=== PATIENT | female | born 1960 | race Caucasian/White ===

== ENCOUNTER 2022-10-01 08:00 | Emergency (ER) | payer OTHER, SELFPAY ==
--- NOTE | ~2022-10-01 | CT_ITS ---
EXAMINATION: CT HEAD WITHOUT CONTRAST CLINICAL INFORMATION: Confusion COMPARISON: None TECHNIQUE: Contiguous axial imaging was performed from the skull base to vertex without intravenous administration of contrast. This CT examination was performed using dose optimization techniques as appropriate, variously including the following: *Automated exposure control *Adjustment of mA and/or kV according to patient size (this includes techniques or standardized protocols for targeted exams where dose is matched to indication/reason for exam; i.e. extremities or head) *Use of iterative reconstruction technique DLP: 565 mGy-cm FINDINGS: There is prominence to the sulci and ventricles with deep white matter gliosis. No hemorrhage, mass or mass effect or extra-axial collection. Calvarium intact. CT/CT head/brain wo IV con IMPRESSION: Chronic changes observed. No acute intracranial pathology.
--- NOTE | ~2022-10-01 | XR_ITS ---
EXAMINATION: XR CHEST CLINICAL INFORMATION: Dementia COMPARISON: None TECHNIQUE: Frontal view of the chest was obtained. FINDINGS: No significant abnormality is noted involving the heart, lungs, mediastinum, bony thorax or soft tissues. XR/XR chest 1V IMPRESSION: Unremarkable examination.
[2022-10-01 08:13] VITALS: BP 104/72; PULSE 101; PULSE 98; RESP 16; TEMP 36.5; O2SAT 100; O2SAT 99; BMI 23.1
[2022-10-01 08:17] VITALS: BP 107/73; PULSE 102; RESP 16; TEMP 36.5; O2SAT 100
--- NOTE | 2022-10-01 08:19 | ECG_ITS ---
Test Reason : fall Blood Pressure : / mmHG Vent. Rate : 093 BPM Atrial Rate : 093 BPM P-R Int : 162 ms QRS Dur : 066 ms QT Int : 376 ms P-R-T Axes : 040 -09 065 degrees QTc Int : 467 ms Normal sinus rhythm Normal ECG No previous ECGs available Referred By: Katya Chavez Electronically Signed By:EMIR MOTT
--- NOTE | 2022-10-01 08:20 | ED.GENADULT ---
HPI - General Adult General Chief complaint: Altered Mental Status Stated complaint: Increased confusion, found on floor at SNF per EMS Time Seen by Provider: 10/01/22 08:08 Source: EMS Mode of arrival: EMS Limitations: altered mental status (Dementia) History of Present Illness HPI narrative: 62-year-old female with history of advanced dementia came in from long-term after was found on the floor, patient is nonverbal and disoriented due to dementia according to the long-term paper, patient is DNR and DNI patient in the emergency department is cooperative, calm, nonverbal, non historian. Related Data Allergies Allergy/AdvReac Type Severity Reaction Status Date / Time No Known Allergies Allergy Verified 10/01/22 08:19 Review of Systems Review of Systems: Yes Unobtainable due to mental status PMFSH Social History Social History Advance Directives: Yes Advance Directives on File: Yes Advance Directives Date on File: 10/01/22 Physical Exam ED Vital Signs: Vital Signs - 24 hr 10/01/22 08:13 10/01/22 08:17 Temperature 97.7 F 97.7 F Pulse Rate 101 H 102 H Respiratory Rate 16 16 Blood Pressure 104/72 107/73 Pulse Oximetry 100 100 Oxygen Delivery Method Room Air Room Air BMI result Body Mass Index 23.1 Vital signs have been reviewed as appeared to be correct. Blood pressure normal. Heart rate normal. Respiration rate normal. Temperature normal. Oxygen saturation normal. Appearance: Awake, No acute distress. Head: Normal external exam. Normocephalic. Atraumatic. No Couch signs noted. No raccoon eyes noted Eyes: PERRLA. EOMI. Conjunctiva and sclera normal. Eyelids normal. ENT: TM's Normal. Pharynx normal. Uvula midline. Moist mucous membranes. No trismus noted. No drooling noted. No muffled voice noted. Neck: Normal inspection. Neck supple. FROM. No adenopathy. Thyroid Normal. No meningeal signs. No neck mass noted. CVS: Normal heart rate and rhythm. Heart sound normal. No murmurs noted. Pulses normal throughout. Respiratory: No respiratory distress. Painless inspiration. Breath sounds normal. No wheezes/rales/rhonchi noted. Chest nontender. No accessory muscle usage noted or decreased air movement noted. Abdomen: Soft and nontender. Bowel sounds normal in all 4 quadrants. No distention noted. No organomegaly noted. No visible injury noted. Back: No CVA tenderness. Full range of motion noted. Skin: Skin warm and dry. Normal skin color. Normal skin turgor. No rashes/lesions/lacerations noted. Extremities: No lower extremity edema. Extremities exhibit normal range of motion. Extremities nontender. Neuro: Cranial nerve exam: II-XII are grossly intact No motor deficit. No sensory deficit. Reflexes normal. Course Course Course Narrative: 62-year-old female came in from long-term patient is demented and poor historian, no leukocytosis with left shift of immature granulocyte negative workup including neuro exam and a head CT, patient will be discharged back to the long-term. Medical Decision Making Differential Diagnosis Differential Diagnoses: The differential diagnosis associated with the presentation includes (Advanced dementia, intracranial bleed, CVA, electrolyte disturbance, dehydration, UTI.) Lab Data MDM Lab Attestation statement: I reviewed the patient's lab results. 10/01/22 08:30 10/01/22 09:24 Labs: Lab Results 10/01/22 10/01/22 10/01/22 Range/Units 08:30 08:30 08:30 WBC 7.0 (4.8-10.8) X10*3/uL RBC 4.34 (4.20-5.50) X10*6/uL Hgb 11.9 L (12.0-16.0) g/dl Hct 37.1 (37.0-47.0) % MCV 85.5 (80.0-98.0) fL MCH 27.4 (27.0-33.0) pg MCHC 32.1 (31.0-35.0) g/dl RDW 12.7 (11.0-16.0) % Plt Count 222 (160-400) X10*3/uL MPV 9.2 L (9.4-12.3) fL Immature Gran % (Auto) 1.7 H (0.0-0.4) % Neut % (Auto) 69.5 (45-73) % Lymph % (Auto) 23.3 (20-40) % [place] % (Auto) 4.0 (2-11) % Eos % (Auto) 1.1 (0-4) % Baso % (Auto) 0.4 (0-2) % Lymph # (Auto) 1.6 (1.2-4.9) X10*3/uL [place] # (Auto) 0.3 (0.1-1.2) X10*3/uL Eos # (Auto) 0.1 (0.0-0.4) X10*3/uL Baso # (Auto) 0.0 (0.0-0.2) X10*3/uL Abs Immat Gran (auto) 0.12 H (0.00-0.03) X10*3/uL Absolute Neuts (auto) 4.9 (2.0-8.3) x10*3/uL Absolute Nucleated RBC 0.000 (0.0-0.012) X10*3/uL Nucleated RBC % (auto) 0.0 (0.0-0.2) /100WBC Sodium (135-145) mmol/L Potassium (3.3-5.1) mmol/L Chloride (96-108) mmol/L Carbon Dioxide (22-29) mmol/L Anion Gap (12-20) BUN (9-16) mg/dL Creatinine (0.5-1.4) mg/dL Estim Creat Clear Calc Estimated GFR Random Glucose (60-115) mg/dL Calcium (8.4-10.2) mg/dL Total Bilirubin (0.0-1.0) mg/dL Direct Bilirubin (0.0-0.5) mg/dL AST (5-31) U/L ALT (0-31) U/L Alkaline Phosphatase (39-117) U/L Troponin I High Sens < 3.5 (<3.5-17.0) ng/L Total Protein (6.5-8.0) g/dL Albumin (3.5-5.0) g/dL Lipase (8-78) U/L Urine Color Urine Appearance Urine pH (5.0-9.0) Ur Specific [place] (1.005-1.025) Urine Protein (Neg-Trace) mg/dL Urine Glucose (UA) (Negative) mg/dL Urine Ketones (Negative) mg/dL Urine Blood (Negative) Urine Nitrite (Negative) Ur Leukocyte Esterase (Negative) Urine RBC (0-2) /HPF Urine WBC (0-5) /HPF Ur Squamous Epith Cells (0-2) /HPF Urine Bacteria (None Seen) Hyaline Casts (0-2) /LPF COVID-19 (NICO) Negative (Negative) COVID-19 Clin Com See Note 10/01/22 10/01/22 Range/Units 09:24 09:24 WBC (4.8-10.8) X10*3/uL RBC (4.20-5.50) X10*6/uL Hgb (12.0-16.0) g/dl Hct (37.0-47.0) % MCV (80.0-98.0) fL MCH (27.0-33.0) pg MCHC (31.0-35.0) g/dl RDW (11.0-16.0) % Plt Count (160-400) X10*3/uL MPV (9.4-12.3) fL Immature Gran % (Auto) (0.0-0.4) % Neut % (Auto) (45-73) % Lymph % (Auto) (20-40) % [place] % (Auto) (2-11) % Eos % (Auto) (0-4) % Baso % (Auto) (0-2) % Lymph # (Auto) (1.2-4.9) X10*3/uL [place] # (Auto) (0.1-1.2) X10*3/uL Eos # (Auto) (0.0-0.4) X10*3/uL Baso # (Auto) (0.0-0.2) X10*3/uL Abs Immat Gran (auto) (0.00-0.03) X10*3/uL Absolute Neuts (auto) (2.0-8.3) x10*3/uL Absolute Nucleated RBC (0.0-0.012) X10*3/uL Nucleated RBC % (auto) (0.0-0.2) /100WBC Sodium 143 (135-145) mmol/L Potassium 3.8 (3.3-5.1) mmol/L Chloride 109 H (96-108) mmol/L Carbon Dioxide 23 (22-29) mmol/L Anion Gap 15 (12-20) BUN 19 H (9-16) mg/dL Creatinine 0.71 (0.5-1.4) mg/dL Estim Creat Clear Calc 74.9 Estimated GFR > 60 Random Glucose 101 (60-115) mg/dL Calcium 8.9 (8.4-10.2) mg/dL Total Bilirubin 0.6 (0.0-1.0) mg/dL Direct Bilirubin < 0.2 (0.0-0.5) mg/dL AST 23 (5-31) U/L ALT 23 (0-31) U/L Alkaline Phosphatase 80 (39-117) U/L Troponin I High Sens (<3.5-17.0) ng/L Total Protein 6.8 (6.5-8.0) g/dL Albumin 4.0 (3.5-5.0) g/dL Lipase 33 (8-78) U/L Urine Color Yellow Urine Appearance Clear Urine pH 5.0 (5.0-9.0) Ur Specific [place] 1.025 (1.005-1.025) Urine Protein 30 (1+) H (Neg-Trace) mg/dL Urine Glucose (UA) Negative (Negative) mg/dL Urine Ketones Trace (Negative) mg/dL Urine Blood Negative (Negative) Urine Nitrite Negative (Negative) Ur Leukocyte Esterase Negative (Negative) Urine RBC 3-5 H (0-2) /HPF Urine WBC 0-5 (0-5) /HPF Ur Squamous Epith Cells 0-2 (0-2) /HPF Urine Bacteria None Seen (None Seen) Hyaline Casts 0-2 (0-2) /LPF COVID-19 (NICO) (Negative) COVID-19 Clin Com Independent Interpretation I performed an independent interpretation of an: Plain X-Ray (Unremarkable examination) and CT Scan (Head: No intracranial pathology.) Radiology Impression Discussion of test interpretation with radiology: I have reviewed the radiologist's reading. Discharge Plan Discharge Clinical Impression: Dementia Patient Disposition: Xfer SNF Instructions: Dementia (ED)
--- OUTSIDE RECORDS SUMMARY | 2022-10-01 08:24 | XMS_ITS | Continuity of Care Document ---
:1960 Author Organization [facility] nter Address [address] [place] [address]- Care Team Providers Name Role Phone Karen Soares Primary Care Physician [place] [facility] [place] Date(s): 02/03/21 - 02/04/[address] [address]- Discharge Disposition: Transfer [facility] Care Attending Physician: Renee Cohen MD Admitting Physician: Renee Cohen MD Referring Physician: Not on Staff, Referring MD Allergies, Adverse Reactions, Alerts Substance Reaction Severity Status penicillin Active Immunizations Given and Recorded Vaccine Date Status Refusal Reason SARS-CoV-2 (COVID-19) Ad26 vaccine 02/04/21 Given Medications cholecalciferol 1000 intl units oral tablet 1 tablet = 1,000 International_Units, By Mouth, Daily, 0 Refills, Maintenance, 07/27/19 10:25:00 EST, Tablet Start Date: 07/27/19 Status: Ordereddonepezil 10 mg oral tablet 10 mg, 1, tablet, By Mouth, Daily in AM, # 30 tablet, Refills 0, Maintenance, 07/25/19 13:29:15 EST Start Date: 07/25/19 Status: Orderedomeprazole 20 mg oral enteric coated capsule 1 capsule = 20 mg, By Mouth, Daily, 30 min prior to breakfast, # 90 capsule, 2 Refills, Maintenance,03/31/16 15:37:29, EC Capsule Start Date: 03/31/16 Stop Date: 12/26/16 Status: OrderedProtonix 20 mg oral delayed release tablet = 20 mg, By Mouth, Daily, 0 Refills, Maintenance, 07/27/19 10:25:00 EST, EC Tablet Start Date: 07/27/19 Status: OrderedTylenol 325 mg oral tablet 650 mg, 2, tablet, By Mouth, Every 4 hours, PRN, Refills 0, Maintenance, Pain , Mild Temperature, 07/27/19 10:25:00 EST Start Date: 07/27/19 Status: Ordered Problem List Condition Effective Dates Status Health Status Informant Dementia(Confirmed) Active Heel pain(Confirmed) Active Results Radiology Reports Exam Date Time Procedure Performing Provider Status 02/03/21 8:53 PM Chest Portable Short , [place]; Auth (Verified) Notes:(Chest Portable) Reason For Exam: CHFRESULT: Chest Portable Chest Portable Hx of Present Illness: CHF; Clinical Question(s): CHF COMPARISON: None. FINDINGS: LINES AND TUBES: None. LUNGS AND PLEURA: Clear lungs. Normal pulmonary vascularity. No pleural effusion. No pneumothorax. HEART, MEDIASTINUM AND JOSE: Heart is normal in size. Normal upper mediastinal and hilar contour. BONES AND SOFT TISSUES: No acute abnormality. IMPRESSION: No acute abnormality. WSN: [id number] Ordering Physician: Mikey Ga Dictated By: Tito Correa DO Dictated Date/Time: 02/03/21 8:59 pm Reviewed By: Tito Correa DO Signed By: Tito Correa DO Signed Date/Time: 02/03/21 8:59 pm Transcribed By: OMKAR Transcribed Date/Time: 02/03/21 8:58 pm Vital Signs Most recent to oldest 1 2 3 [Reference Range]: Height 163 cm 163 cm 163 cm (02/04/21 1:16 PM) (02/03/21 8:06 PM) (02/03/21 7:5 8 PM) Weight 68 kg 68 kg 68 kg (02/04/21 1:16 PM) (02/03/21 8:06 PM) (02/03/21 7:5 8 PM) Oxygen Saturation [94-100 %] 99 % 98 % 99 % (02/04/21 1:16 PM) (02/04/21 11:56 AM) (02/04/21 8: 21 AM) Pulse Rate [55-90 bpm] 111 bpm 116 bpm 74 bpm *H* *H* (02/04/21 8:21 AM ) (02/04/21 1:16 PM) (02/04/21 11:56 AM) Body Mass Index [18.5-24.99] 25.59 25.59 *H* *H* (02/04/21 1:16 PM) (02/03/21 8:06 PM) Blood Pressure [90-138/55-84 124/78 mm Hg 128/86 mm Hg 95/ 57 mm Hg mm Hg] (02/04/21 1:16 PM) (02/04/21 11:56 AM) (02/04/21 8: 21 AM) Respiratory Rate [16-30 12 br/min 18 br/min 18 br/mi n br/min] *L* (02/04/21 11:56 AM) (02/04/21 8:21 AM) (02/04/21 1:16 PM) Temperature [96.8-100.4 DegF] 98.4 DegF 98.1 DegF 99 .0 DegF (02/04/21 1:16 PM) (02/04/21 11:56 AM) (02/04/21 8: 21 AM) Mode of Delivery (Oxygen) Room air Room air Room a ir (02/04/21 1:16 PM) (02/04/21 11:56 AM) (02/04/21 8: 21 AM) Blood pressure sites Arm, right Arm, right Arm, left (02/04/21 1:16 PM) (02/04/21 11:56 AM) (02/04/21 8: 21 AM) Temperature Route Oral Oral Oral (02/04/21 1:16 PM) (02/04/21 11:56 AM) (02/04/21 8: 21 AM) Dry Weight 68 kg 68 kg 68 kg (02/04/21 1:16 PM) (02/03/21 8:06 PM) (02/03/21 7:5 8 PM) Social History Social History Type Response Smoking Status Never smoker entered on: 03/23/15 Sex
--- OUTSIDE RECORDS SUMMARY | 2022-10-01 08:24 | XMS_ITS | Continuity of Care Document ---
:1960 Author Organization [facility] Address [address] [place] [address]- Care Team Providers Name Role Phone Karen Soares Primary Care Physician Encounter [facility] [id number] Date(s): 03/02/21 - 03/03/[address] [address]- Discharge Disposition: A-D/C Home Attending Physician: Abdulaziz Benoit MD Admitting Physician: Abdulaziz Benoit MD Referring Physician: Not on Staff, Referring [...] Status Informant Dementia(Confirmed) Active Heel pain(Confirmed) Active Vital Signs Most recent to oldest 1 2 3 [Reference Range]: Height 164 cm 164 cm (03/03/21 2:00 AM) (03/02/21 4:51 PM) Weight 65 kg (03/02/21 4:51 PM) Oxygen Saturation [94-100 %] 99 % 98 % 99 % (03/03/21 2:00 AM) (03/02/21 8:39 PM) (03/02/21 6:1 5 PM) Pulse Rate [55-90 bpm] 82 bpm 83 bpm 90 bpm (03/03/21 2:00 AM) (03/02/21 8:39 PM) (03/02/21 6:1 5 PM) Blood Pressure [90-138/55-84 mm 115/69 mm Hg 147/89 mm Hg 121/76 mm Hg Hg] (03/03/21 2:00 AM) *H* (03/02/21 6:15 PM) (03/02/21 8:39 PM) Respiratory Rate [16-30 br/min] 18 br/min 18 br/min 18 br/min (03/03/21 2:00 AM) (03/02/21 8:39 PM) (03/02/21 6:1 5 PM) Temperature [96.8-100.4 DegF] 98.2 DegF 97.8 DegF (03/02/21 8:39 PM) (03/02/21 4:39 PM) Mode of Delivery (Oxygen) Room air Room air Room a ir (03/03/21 2:00 AM) (03/02/21 8:39 PM) (03/02/21 6:1 5 PM) Blood pressure sites Arm, left Arm, left Arm, right (03/03/21 2:00 AM) (03/02/21 6:15 PM) (03/02/21 4:3 9 PM) Temperature Route Oral Temporal (03/02/21 8:39 PM) (03/02/21 4:39 PM) Dry Weight 65 kg (03/02/21 4:51 PM) Social History Social History Type Response Smoking Status Never smoker entered on: 03/23/15 Sex
--- OUTSIDE RECORDS SUMMARY | 2022-10-01 08:24 | XMS_ITS | Continuity of Care Document ---
:1960 Author Organization [facility] nter Address [address] [place] [id number]- Care Team Providers Name Role Phone Karen Soares Primary Care Physician Encounter [facility] [place] Date(s): 07/24/19 - 07/27/[address] [address] [phone] Discharge Disposition: A-D/C Home Attending Physician: Reyna Cheng MD Admitting Physician: Mauricio Newman DO Referring Physician: Not on Staff, Referring MD Allergies, Adverse Reactions, Alerts Substance Reaction Severity Status penicillin Active Medications cholecalciferol 1000 intl units oral tablet [...] Informant Dementia(Confirmed) Active Heel pain(Confirmed) Active Results Orders for Microbiology Reports Name Date Blood Culture 07/24/19 Blood Culture #2 07/24/19 Microbiology Reports TEST:Blood Culture STATUS:Unauthenticated BODY SITE: SOURCE:Blood COLLECTED DATE/TIME:07/24/19 12:45 PMBlood Culture SPECIMEN DESCRIPTION : BLOOD SPECIAL REQUESTS : NONE CULTURE : NO GROWTH 3 DAYS REPORT STATUS : PRELIMINARY REPORT TEST:Blood Culture, Second Order STATUS:Unauthenticated BODY SITE: SOURCE:Blood COLLECTED DATE/TIME:07/24/19 12:45 PMBlood Culture, Second Order SPECIMEN DESCRIPTION : BLOOD SPECIAL REQUESTS : NONE CULTURE : NO GROWTH 3 DAYS REPORT STATUS : PRELIMINARY REPORT Vital Signs Most recent to oldest 1 2 3 [Reference Range]: Height 163 cm 163 cm 163 cm (07/27/19 7:43 AM) (07/26/19 11:35 PM) (07/26/19 8:00 PM) Weight 68 kg 68 kg 64.5 kg (07/24/19 5:15 PM) (07/24/19 5:15 PM) (07/24/19 12:49 PM) Oxygen Saturation [94-100 100 % 100 % 100 % %] (07/27/19 7:43 AM) (07/26/19 11:35 PM) (07/26/19 8:00 PM) Pulse Rate [55-90 bpm] 72 bpm 79 bpm 82 bpm (07/27/19 7:43 AM) (07/26/19 11:35 PM) (07/26/19 8:00 PM) Body Mass Index 25.59 25.59 24.28 [18.5-24.99] *H* *H* (07/24/19 12:49 PM) (07/24/19 5:15 PM) (07/24/19 5:15 PM) Blood Pressure 111/63 mm Hg 120/79 mm Hg 113/77 mm Hg [90-138/55-84 mm Hg] (07/27/19 7:43 AM) (07/26/19 11:35 PM) ( 8:00 PM) Respiratory Rate [16-30 18 br/min 18 br/min 18 br/mi n br/min] (07/27/19 7:43 AM) (07/26/19 11:35 PM) (07/26/19 8:00 PM) Temperature [96.8-100.4 98.0 DegF 97.9 DegF 97.7 Deg F DegF] (07/27/19 7:43 AM) (07/26/19 11:35 PM) (07/26/19 8:00 PM) Mode of Delivery (Oxygen) Room air Room air Room a ir (07/27/19 7:43 AM) (07/26/19 11:35 PM) (07/26/19 8:00 PM) Blood pressure sites Arm, left Arm, right Arm, right (07/27/19 7:43 AM) (07/26/19 11:35 PM) (07/26/19 8:00 PM) Temperature Route Oral Oral Oral (07/27/19 7:43 AM) (07/26/19 11:35 PM) (07/26/19 8:00 PM) Dry Weight 68 kg 64.5 kg 64.5 kg (07/24/19 5:15 PM) (07/24/19 12:49 PM) (07/24/19 12:40 PM) Weight Obtained Via Patient/family stated (07/24/19 11:44 AM) Dry Weight Obtained Via Patient/family stated (07/24/19 11:44 AM) Sensory deficits Cognitive deficit (07/25/19 1:15 AM) Mobility assistance Partial assistance (07/25/19 1:15 AM) Social History Social History Type Response Smoking Status Never smoker entered on: 03/23/15 Sex
[2022-10-01 08:34] LABS: MANUAL DIFF FLAG NO
--- NOTE | 2022-10-01 08:36 | PC.NURSE ---
Pt coming from SNF for fall, pt very poor historian with hx of dementia. Able to move all extremities upon evaluation. Labs drawn and sent, xray at bedside.
[2022-10-01 08:37] LABS: Basophils Percent Auto 0.4 % (0-2); Eosinophils Absolute Auto 0.1 X10*3/uL (0.0-0.4); Eosinophils Percent Auto 1.1 % (0-4); Hematocrit 37.1 % (37.0-47.0); Hemoglobin 11.9 g/dl (12.0-16.0); Imm Gran Abs Auto 0.12 X10*3/uL (0.00-0.03); Imm Gran Pct Auto 1.7 % (0.0-0.4); Lymphocytes Absolute Auto 1.6 X10*3/uL (1.2-4.9); Lymphocytes Percent Auto 23.3 % (20-40); Mean Corpuscular HGB Conc 32.1 g/dl (31.0-35.0); Mean Corpuscular Hemoglobin 27.4 pg (27.0-33.0); Mean Corpuscular Volume 85.5 fL (80.0-98.0); Mean Platelet Volume 9.2 fL (9.4-12.3); Monocytes Absolute Auto 0.3 X10*3/uL (0.1-1.2); Neutrophils Absolute Auto 4.9 x10*3/uL (2.0-8.3); Neutrophils Percent Auto 69.5 % (45-73); Platelet Count 222 X10*3/uL (160-400); Red Blood Count 4.34 X10*6/uL (4.20-5.50); Red Cell Distribution Width 12.7 % (11.0-16.0)
[2022-10-01 08:59] LABS: COVID-19 Test Negative (Negative); IDNOW Serial# BCCEAD1C
[2022-10-01 09:00] LABS: Troponin-I High Sensitivity < 3.5 ng/L (<3.5-17.0)
--- NOTE | 2022-10-01 09:22 | PC.NURSE ---
Pt incontinent of stool, linens changed and pt cleaned. Straight cath done, urine obtained.
[2022-10-01 09:44] LABS: Alanine Aminotransferase 23 U/L (0-31); Alkaline Phosphatase 80 U/L (39-117); Anion Gap 15 (12-20); Aspartate Amino Transferase 23 U/L (5-31); Bilirubin Direct < 0.2 mg/dL (0.0-0.5); Bilirubin Total 0.6 mg/dL (0.0-1.0); Blood Urea Nitrogen 19 mg/dL (9-16); Calcium 8.9 mg/dL (8.4-10.2); Carbon Dioxide 23 mmol/L (22-29); Chloride 109 mmol/L (96-108); Creatinine Clr Calc Pharmacy 74.9; Estimated Glomerular Filt Rate > 60; Glucose Random 101 mg/dL (60-115); Lipase 33 U/L (8-78); Potassium 3.8 mmol/L (3.3-5.1); Sodium 143 mmol/L (135-145); Total Protein 6.8 g/dL (6.5-8.0)
[2022-10-01 09:49] LABS: Appearance Urine Clear; Color Urine Yellow; Glucose Urine UA Negative (Negative); Leukocyte Esterase Urine Negative (Negative); Nitrite Urine Negative (Negative); Specific Gravity - Urine 1.025 (1.005-1.025); UMIC TRIGGER UACC YES; Urine Blood Negative (Negative); Urine Ketones Trace mg/dL (Negative); Urine Protein 30 (1+) mg/dL (Neg-Trace)
[2022-10-01 10:02] LABS: Bacteria Urine None Seen (None Seen); Hyaline Casts Urine 0-2 /LPF (0-2); Squamous Epithelial Cell Urine 0-2 /HPF (0-2); WBC Urine 0-5 /HPF (0-5)
== END 2022-10-01 13:03 | disposition skilled nursing facility (03) ==
PROVIDERS: Emergency Provider Emergency Medicine; PCP Family Medicine Geriatric Medicine
DX: R41.82 Altered mental status, unspecified (principal); F03.90 Unspecified dementia, unspecified severity, without behavioral disturbance, psychotic disturbance, mood disturbance, and anxiety; R07.89 Other chest pain; Z20.828 Contact with and (suspected) exposure to other viral communicable diseases; Z20.822 Contact with and (suspected) exposure to COVID-19; Z79.899 Other long term (current) drug therapy
CPT/HCPCS: 36415; 70450; 71045; 80048; 80076; 81001; 83690; 84484; 85025; 87635; 93005; 99284; 99285

== ENCOUNTER 2023-05-17 08:25 | Emergency (ER) | payer OTHER, SELFPAY ==
[2023-05-17 08:34] VITALS: BP 120/75; PULSE 119; RESP 17; TEMP 36.8; O2SAT 98
[2023-05-17 08:36] VITALS: BP 120/75; BP 124/84; PULSE 119; PULSE 130; RESP 17; TEMP 36.8; O2SAT 97; O2SAT 98; BMI 23.0
--- NOTE | 2023-05-17 08:47 | ED.FALL ---
HPI - Fall General Chief Complaint: Fall Stated Complaint: SZ W/FALL,HIT HEAD,-HX SZ,-THIN,+CCOL,SNF PER EMS Time Seen by Provider: 05/17/23 08:29 Source: EMS Mode of arrival: EMS Limitations: altered mental status History of Present Illness HPI Narrative: 62 yo female with PMH of severe dementia, weakness, PUD, gait issues was reportedly going to the bathroom when she had 60 seconds of convulsions and fell to the ground hitting her head on left side, unknown LOC no tongue biting or incontinence no hx of seizures. patinet is at baseline but cannot convey history. not on thinners complaint: fall Onset (ago): minute(s) (prior to arrival ) Fall from: standing Fall witnessed: yes, by living facility staff Place fall occurred: shelter/SNF Loss of consciousness: unsure Prolonged down time: no Symptoms prior to fall: other (full body convulsions) Context: history of frequent falls Location of injury: head Severity: mild Associated symptoms (after fall): other (cannot communicate a history) Related Data Allergies Allergy/AdvReac Type Severity Reaction Status Date / Time No Known Allergies Allergy Verified 10/01/22 08:19 Review of Systems Review of Systems: ROS unable to be obtained due to severe dementia [facility] Past Medical History Medical History (Updated 05/17/23 @ 12:04 by Genoveva Edwards DO) Peptic ulcer, site unspecified, unspecified as acute or chronic, without hemorrhage or perforation Dementia in other diseases classified elsewhere, unspecified severity, without behavioral disturbance, psychotic disturbance, mood disturbance, and anxiety Vitamin D deficiency, unspecified Unspecified dementia, unspecified severity, without behavioral disturbance, psychotic disturbance, mood disturbance, and anxiety Muscle weakness (generalized) Vascular dementia, unspecified severity, without behavioral disturbance, psychotic disturbance, mood disturbance, and anxiety Age-related nuclear cataract, bilateral Unspecified lack of coordination Dementia in other diseases classified elsewhere, unspecified severity, with agitation Essential (primary) hypertension Adjustment disorder, unspecified Other abnormalities of gait and mobility Dysphagia, unspecified Nausea with vomiting, unspecified Gastro-esophageal reflux disease without esophagitis Dysphagia, oropharyngeal phase Alzheimer's disease, unspecified Personal history of peptic ulcer disease Social History Social History Advance Directives: Yes Advance Directives on File: Yes Advance Directives Date on File: 10/01/22 Physical Exam Vital Signs: Vital Signs: Last Vital Signs Temp 98.3 F 05/17/23 08:36 Pulse 109 H 05/17/23 10:02 Resp 14 05/17/23 10:02 BP 124/80 05/17/23 10:02 Pulse Ox 99 05/17/23 10:02 O2 Del Method Room Air 05/17/23 10:02 BMI result Body Mass Index 23.0 Appearance: Alert. confused and intermittent agitation No acute distress. Eyes: Pupils equal, round and reactive to light. ENT: Pharynx normal. L forehead 2.5cm linear laceration superficial with contusion Neck: Normal inspection. Neck supple. CVS: tachycardic heart rate and rhythm. Pulses normal. Respiratory: No respiratory distress. Breath sounds normal. Abdomen: Soft and non-tender. Skin: Skin warm and dry. Normal skin color. Normal skin turgor. Extremities: No lower extremity edema. full ROM no pain with movements Neuro: at baseline. No motor deficit. No sensory deficit. Course Course Course Narrative: spoke to brother HCP who is aware of plan. CTA PE ordered given elevated ddimer Reevaluation(s) Reevaluation #1: called to center she fell off toilet and had seizure activity Reevaluation #2: attempts to reach brother but he has hung up on me. Medications Administered Discontinued Medications Generic Name Dose Route Start Last Admin Trade Name Freq PRN Reason Stop Dose Admin Sodium Chloride 1,000 mls @ 999 mls/hr 05/17/23 09:00 05/17/23 10:12 Ns IV 05/17/23 10:00 Infused .Q1H1M ALY Infusion Iohexol 65 ml 05/17/23 10:24 05/17/23 10:25 Iohexol 350 Mg/Ml 100 Ml Infus..Btl IV 05/17/23 10:25 65 ml ONCE ONE Administration Lidocaine HCl 5 ml 05/17/23 08:29 05/17/23 09:11 Lidocaine Hcl 1 % Mpf 5 Ml Vial SUBCUT 05/17/23 08:30 5 ml ONCE ONE Administration Procedures Laceration Laceration 1: Site: scalp Side (If applicable): left Size (cm): 3 Description: linear Depth: simple, single layer Local Anesthetic: lidocaine 1% Amount of anesthesia used (mL): 2 Pre-repair: wound explored, irrigated extensively and deep structures intact Skin layer closed with: nylon Size (cm): 5-0 Number of sutures: 3 Technique: simple, interrupted Medical Decision Making Medical Decision Making [facility] Narrative: 62 yo female with PMH of severe dementia, weakness, PUD, gait issues here with reported convulsions and then head injury unsure LOC hard to say if this was syncope vs seizure - no tongue biting or incontinence at this time will need labs, EKG, CT head/cspine, CXR, UA and troponin x 2, ddimer given tachycardia. I have no ability to get history from patient. DNR DNI HCP brother to be involved. Differential Diagnosis Differential Diagnoses: The differential diagnosis associated with the presentation includes fall, syncope, seizure, anemia, dehydration, head injury, VTE Admission/Observation Consideration of admission/observation: Escalation of care including admission/observation considered at baseline, work up negative stable for DC back with follow up Lab Data [facility] Lab Attestation statement: I reviewed the patient's lab results. 05/17/23 09:03 05/17/23 09:03 Labs: Lab Results 05/17/23 05/17/23 05/17/23 Range/Units 08:51 08:52 09:03 WBC 6.3 (4.8-10.8) X10*3/uL RBC 4.78 (4.20-5.50) X10*6/uL Hgb 13.4 (12.0-16.0) g/dl Hct 40.7 (37.0-47.0) % MCV 85.1 (80.0-98.0) fL MCH 28.0 (27.0-33.0) pg MCHC 32.9 (31.0-35.0) g/dl RDW 12.5 (11.0-16.0) % Plt Count 191 (160-400) X10*3/uL MPV 9.6 (9.4-12.3) fL Immature Gran % (Auto) 1.1 H (0.0-0.4) % Neut % (Auto) 79.0 H (45-73) % Lymph % (Auto) 16.3 L (20-40) % [place] % (Auto) 2.8 (2-11) % Eos % (Auto) 0.5 (0-4) % Baso % (Auto) 0.3 (0-2) % Lymph # (Auto) 1.0 L (1.2-4.9) X10*3/uL [place] # (Auto) 0.2 (0.1-1.2) X10*3/uL Eos # (Auto) 0.0 (0.0-0.4) X10*3/uL Baso # (Auto) 0.0 (0.0-0.2) X10*3/uL Abs Immat Gran (auto) 0.07 H (0.00-0.03) X10*3/uL Absolute Neuts (auto) 5.0 (2.0-8.3) x10*3/uL Absolute Nucleated RBC 0.000 (0.0-0.012) X10*3/uL Nucleated RBC % (auto) 0.0 (0.0-0.2) /100WBC PT 12.8 (11.1-13.3) SEC INR 1.1 (0.9-1.1) D-Dimer High Sensitivty 7015 NG/ML Hold Blue Top SEE NOTE Sodium 141 (135-145) mmol/L Potassium 3.5 (3.3-5.1) mmol/L Chloride 109 H (96-108) mmol/L Carbon Dioxide 20 L (22-29) mmol/L Anion Gap 16 (12-20) BUN 13 (9-16) mg/dL Creatinine 0.76 (0.5-1.4) mg/dL Estim Creat Clear Calc 72.7 Estimated GFR > 60 Random Glucose 157 H (60-115) mg/dL Calcium 9.4 (8.4-10.2) mg/dL Magnesium 2.2 (1.6-2.6) mg/dL Total Bilirubin 0.7 (0.0-1.0) mg/dL Direct Bilirubin 0.2 (0.0-0.5) mg/dL AST 17 (5-31) U/L ALT 12 (0-31) U/L Alkaline Phosphatase 79 (39-117) U/L Troponin I High Sens < 2.7 (<3.5-17.0) ng/L B-Natriuretic Peptide < 10 (<100) pg/mL Total Protein 7.0 (6.5-8.0) g/dL Albumin 4.0 (3.5-5.0) g/dL Lipase 14 (8-78) U/L TSH (0.32-4.0) uIU/mL Urine Color Yellow Urine Appearance Clear Urine pH 5.0 (5.0-9.0) Ur Specific [place] 1.015 (1.005-1.025) Urine Protein Negative (Neg-Trace) mg/dL Urine Glucose (UA) Negative (Negative) mg/dL Urine Ketones Trace (Negative) mg/dL Urine Blood Trace H (Negative) Urine Nitrite Negative (Negative) Ur Leukocyte Esterase Negative (Negative) Urine RBC 3-5 H (0-2) /HPF Urine WBC 0-5 (0-5) /HPF Ur Squamous Epith Cells 0-2 (0-2) /HPF Urine Bacteria None Seen (None Seen) Hyaline Casts 3-5 (0-2) /LPF COVID-19 (NICO) Negative (Negative) COVID-19 Clin Com See Note 05/17/23 Range/Units 11:21 WBC (4.8-10.8) X10*3/uL RBC (4.20-5.50) X10*6/uL Hgb (12.0-16.0) g/dl Hct (37.0-47.0) % MCV (80.0-98.0) fL MCH (27.0-33.0) pg MCHC (31.0-35.0) g/dl RDW (11.0-16.0) % Plt Count (160-400) X10*3/uL MPV (9.4-12.3) fL Immature Gran % (Auto) (0.0-0.4) % Neut % (Auto) (45-73) % Lymph % (Auto) (20-40) % [place] % (Auto) (2-11) % Eos % (Auto) (0-4) % Baso % (Auto) (0-2) % Lymph # (Auto) (1.2-4.9) X10*3/uL [place] # (Auto) (0.1-1.2) X10*3/uL Eos # (Auto) (0.0-0.4) X10*3/uL Baso # (Auto) (0.0-0.2) X10*3/uL Abs Immat Gran (auto) (0.00-0.03) X10*3/uL Absolute Neuts (auto) (2.0-8.3) x10*3/uL Absolute Nucleated RBC (0.0-0.012) X10*3/uL Nucleated RBC % (auto) (0.0-0.2) /100WBC PT (11.1-13.3) SEC INR (0.9-1.1) D-Dimer High Sensitivty NG/ML Hold Blue Top Sodium (135-145) mmol/L Potassium (3.3-5.1) mmol/L Chloride (96-108) mmol/L Carbon Dioxide (22-29) mmol/L Anion Gap (12-20) BUN (9-16) mg/dL Creatinine (0.5-1.4) mg/dL Estim Creat Clear Calc Estimated GFR Random Glucose (60-115) mg/dL Calcium (8.4-10.2) mg/dL Magnesium (1.6-2.6) mg/dL Total Bilirubin (0.0-1.0) mg/dL Direct Bilirubin (0.0-0.5) mg/dL AST (5-31) U/L ALT (0-31) U/L Alkaline Phosphatase (39-117) U/L Troponin I High Sens < 2.7 (<3.5-17.0) ng/L B-Natriuretic Peptide (<100) pg/mL Total Protein (6.5-8.0) g/dL Albumin (3.5-5.0) g/dL Lipase (8-78) U/L TSH 1.02 (0.32-4.0) uIU/mL Urine Color Urine Appearance Urine pH (5.0-9.0) Ur Specific [place] (1.005-1.025) Urine Protein (Neg-Trace) mg/dL Urine Glucose (UA) (Negative) mg/dL Urine Ketones (Negative) mg/dL Urine Blood (Negative) Urine Nitrite (Negative) Ur Leukocyte Esterase (Negative) Urine RBC (0-2) /HPF Urine WBC (0-5) /HPF Ur Squamous Epith Cells (0-2) /HPF Urine Bacteria (None Seen) Hyaline Casts (0-2) /LPF COVID-19 (NICO) (Negative) COVID-19 Clin Com Independent Interpretation I performed an independent interpretation of an: EKG, Plain X-Ray and CT Scan (no PE no trauma) Interpretation: Rate: 119 Rhythm: sinus tachycardia [place]: left Normal P waves. Normal GUIDO. Normal QRS complex. ST T wave : normal no ALY qTC: normal prior studies: no acute ischemia The study has been interpreted contemporaneously by me. . Radiology Impression Discussion of test interpretation with radiology: I have reviewed the radiologist's reading. Independent Historian Clinical information obtained from an independent historian. History obtained from or confirmed by: EMS External Record Review External record reviewed: Outpatient record Discharge Plan Discharge Clinical Impression: Tachycardia, Seizure-like activity Head injury Qualifiers: Encounter type: initial encounter Qualified Code(s): S09.90XA - Unspecified injury of head, initial encounter Forehead laceration Qualifiers: Encounter type: initial encounter Qualified Code(s): S01.81XA - Laceration without foreign body of other part of head, initial encounter Patient Disposition: Home, Self-Care Instructions: Laceration (ED), Head Injury (ED), Tachycardia (ED) Additional Instructions: normal CT head and cspine. CTA of chest negative. no pneumonia or blood clot, no UTI, troponin negative x 2. given IVF monitor sutures for signs of infection - stitches out in 7 to 10 days. given first time possible seizure would hold off anti-epileptic though given safety profile could start keppra 250 or 500mg BID. It can worsen depression. would recommend outpatient follow up
--- NOTE | 2023-05-17 09:11 | PC.NURSE ---
pt awake/alert to baseline, supervising librarian applied ST on monitor, pt removed dressing to head from ems, labs drawn, seizure precautions intact, pt medicated per order, lido at bedside for provider, call lang within reach, will continue to monitor
[2023-05-17 09:26] LABS: Alanine Aminotransferase 12 U/L (0-31); Alkaline Phosphatase 79 U/L (39-117); Anion Gap 16 (12-20); Aspartate Amino Transferase 17 U/L (5-31); Bilirubin Direct 0.2 mg/dL (0.0-0.5); Bilirubin Total 0.7 mg/dL (0.0-1.0); Blood Urea Nitrogen 13 mg/dL (9-16); Calcium 9.4 mg/dL (8.4-10.2); Carbon Dioxide 20 mmol/L (22-29); Chloride 109 mmol/L (96-108); Creatinine Clr Calc Pharmacy 72.7; Estimated Glomerular Filt Rate > 60; Glucose Random 157 mg/dL (60-115); Lipase 14 U/L (8-78); Magnesium 2.2 mg/dL (1.6-2.6); Potassium 3.5 mmol/L (3.3-5.1); Sodium 141 mmol/L (135-145)
--- NOTE | 2023-05-17 09:50 | PC.NURSE ---
pt disconnected IV fluids from line, as well as pulled off bandage from head, pt had blood to hands and on hospital attire, full bed change was performed.
[2023-05-17 10:02] VITALS: BP 124/80; PULSE 109; RESP 14; O2SAT 99
--- NOTE | 2023-05-17 11:48 | PC.NURSE ---
Addendum entered by Isha Painting RN 05/17/23 11:52: no seizure activity has been noted while here, pt sz and fall precautions intact Original Note: patient awake/alert to baseline, this nurse assisted provider while lt for head was stitched with 3 stitches, pt tolerated well, will continue to monitor
--- NOTE | 2023-05-17 12:03 | PC.NURSE ---
this nurse called the [facility] to speak with the nurse that sent the patient to the hospital. the nurse stated that the patient was ambulated to the bathroom with the aid, the patient was assisted to the toilet and the aid stepped out of the bathroom, the aid heard a noise checked on the patient and found the patient on the floor bleeding and seizing. The nurse stated the seizure lasted about 1-1.5 minutes. The fall to the bathroom floor was unwitnessed per the nurse.
== END 2023-05-17 13:39 | disposition home or self-care (01) ==
PROVIDERS: Emergency Provider Emergency Medicine; PCP Family Medicine Geriatric Medicine
DX: S01.01XA Laceration without foreign body of scalp, initial encounter (principal); R51.9 Headache, unspecified; M54.2 Cervicalgia; R00.0 Tachycardia, unspecified; R56.9 Unspecified convulsions; W01.10XA Fall on same level from slipping, tripping and stumbling with subsequent striking against unspecified object, initial encounter; Y93.9 Activity, unspecified; Y92.9 Unspecified place or not applicable; Y99.9 Unspecified external cause status; Z11.52 Encounter for screening for COVID-19; Z20.822 Contact with and (suspected) exposure to COVID-19; Z79.899 Other long term (current) drug therapy
CPT/HCPCS: 12002; 36415; 70450; 71045; 71275; 72125; 80048; 80076; 81001; 81003; 83690; 83735; 83880; 84443; 84484; 85025; 85379; 85610; 87635; 93005; 99285; Q9967

== ENCOUNTER 2023-08-06 04:58 | Emergency (ER) | payer OTHER, SELFPAY ==
--- NOTE | ~2023-08-06 | CT_ITS ---
EXAMINATION: CT HEAD WITHOUT CONTRAST CT CERVICAL SPINE WITHOUT CONTRAST CLINICAL INFORMATION: Fall. COMPARISON: None available. TECHNIQUE: Contiguous axial imaging was performed through the head and cervical spine without intravenous administration of contrast. This CT examination was performed using dose optimization techniques as appropriate, variously including the following: *Automated exposure control *Adjustment of mA and/or kV according to patient size (this includes techniques or standardized protocols for targeted exams where dose is matched to indication/reason for exam; i.e. extremities or head) *Use of iterative reconstruction technique DLP: 912 mGy-cm FINDINGS: There is cerebral volume loss with prominence of the lateral and the third ventricles. The cortical sulci are widened appropriately. The fourth ventricle and basal cisterns are normally outlined. There is moderate bilateral periventricular and central white matter diminished attenuation. There is no acute territorial defect, hemorrhage or midline shift. The extra-axial spaces are unremarkable. Calvarium: Intact. Maxillofacial sinuses and mastoids: Clear as visualized. Cervical spine: The alignment is within normal limits. There is diffuse [id number] cervical disc degenerative change with loss of disc space, endplate change and posterior osteophytes at C5-C6 and C6-C7 associated with mild diffuse facet osteoarthritic hypertrophic change without significant spinal canal or neuroforaminal narrowing. There is no fracture. The soft tissues are unremarkable. The visualized upper lung malin are clear. CT/CT cervical spine wo IV con IMPRESSION: 1. No acute intracranial process seen. 2. Moderate cerebral volume loss with chronic small vessel ischemic changes. 3. No acute cervical spine fracture or dislocation. Moderate degenerative disc changes C5-C6 and C6-C7.
--- NOTE | ~2023-08-06 | CT_ITS ---
EXAMINATION: CT HEAD WITHOUT CONTRAST CT CERVICAL SPINE WITHOUT CONTRAST CLINICAL INFORMATION: Fall. COMPARISON: None available. TECHNIQUE: Contiguous axial imaging was performed through the head and cervical spine without intravenous administration of contrast. This CT examination was performed using dose optimization techniques as appropriate, variously including the following: *Automated exposure control *Adjustment of mA and/or kV according to patient size (this includes techniques or standardized protocols for targeted exams where dose is matched to indication/reason for exam; i.e. extremities or head) *Use of iterative reconstruction technique DLP: 912 mGy-cm FINDINGS: There is cerebral volume loss with prominence of the lateral and the third ventricles. The cortical sulci are widened appropriately. The fourth ventricle and basal cisterns are normally outlined. There is moderate bilateral periventricular and central white matter diminished attenuation. There is no acute territorial defect, hemorrhage or midline shift. The extra-axial spaces are unremarkable. Calvarium: Intact. Maxillofacial sinuses and mastoids: Clear as visualized. Cervical spine: The alignment is within normal limits. There is diffuse [id number] cervical disc degenerative change with loss of disc space, endplate change and posterior osteophytes at C5-C6 and C6-C7 associated with mild diffuse facet osteoarthritic hypertrophic change without significant spinal canal or neuroforaminal narrowing. There is no fracture. The soft tissues are unremarkable. The visualized upper lung malin are clear. CT/CT head/brain wo IV con IMPRESSION: 1. No acute intracranial process seen. 2. Moderate cerebral volume loss with chronic small vessel ischemic changes. 3. No acute cervical spine fracture or dislocation. Moderate degenerative disc changes C5-C6 and C6-C7.
[2023-08-06 05:06] VITALS: BP 122/85; BP 124/85; PULSE 100; PULSE 90; RESP 16; TEMP 37.1; O2SAT 100; BMI 27.3
[2023-08-06 06:00] VITALS: BP 126/72; PULSE 110; RESP 16; O2SAT 100
--- NOTE | 2023-08-06 06:43 | ED.FALL ---
HPI - Fall General Chief Complaint: Fall Stated Complaint: unwitnessed fall Time Seen by Provider: 08/06/23 05:16 Source: EMS and other Mode of arrival: EMS History of Present Illness HPI Narrative: 63-year-old female who arrives via EMS from [facility] with an unwitnessed fall. Patient has baseline dementia. Related Data Allergies Allergy/AdvReac Type Severity Reaction Status Date / Time No Known Allergies Allergy Verified 10/01/22 08:19 Review of Systems Review of Systems: Pertinent positives and negatives as stated in HPI PMFSH Past Medical History Source: nursing notes reviewed Medical History Peptic ulcer, site unspecified, unspecified as acute or chronic, without hemorrhage or perforation Dementia in other diseases classified elsewhere, unspecified severity, without behavioral disturbance, psychotic disturbance, mood disturbance, and anxiety Vitamin D deficiency, unspecified Unspecified dementia, unspecified severity, without behavioral disturbance, psychotic disturbance, mood disturbance, and anxiety Muscle weakness (generalized) Vascular dementia, unspecified severity, without behavioral disturbance, psychotic disturbance, mood disturbance, and anxiety Age-related nuclear cataract, bilateral Unspecified lack of coordination Dementia in other diseases classified elsewhere, unspecified severity, with agitation Essential (primary) hypertension Adjustment disorder, unspecified Other abnormalities of gait and mobility Dysphagia, unspecified Nausea with vomiting, unspecified Gastro-esophageal reflux disease without esophagitis Dysphagia, oropharyngeal phase Alzheimer's disease, unspecified Personal history of peptic ulcer disease Social History Social History Advance Directives: Yes Advance Directives on File: Yes Advance Directives Date on File: 10/01/22 Physical Exam Vital Signs: Vital Signs: Last Vital Signs Temp 98.8 F 08/06/23 05:06 Pulse 110 H 08/06/23 06:00 Resp 16 08/06/23 06:00 BP 126/72 08/06/23 06:00 Pulse Ox 100 08/06/23 06:00 O2 Del Method Room Air 08/06/23 06:00 BMI result Body Mass Index 27.3 VITAL SIGNS: Reviewed. GENERAL: Cachectic, elderly, in no acute distress. HEAD: Normocephalic/superficial abrasion to mid forehead EYES: PERRLA, EOMI NECK: C-collar in place, no step-offs noted LUNGS: Normal breath sounds. No adventitious sounds or accessory muscle use. SpO2<100> CARDIOVASCULAR: Regular rate and rhythm without noted murmurs ABDOMEN: Soft, non-tender, non-distended with bowel sounds. MUSCULOSKELETAL: No tenderness, deformities, or effusions noted on gross inspection. EXTREMITIES: No cyanosis, clubbing or edema. SKIN: Inspection of the skin reveals no rashes NEUROLOGIC: Alert and strength and sensation to light touch were grossly intact x 4. Medical Decision Making Medical Decision Making MDM Narrative: 63-year-old female with history and clinical presentation consistent with fall, on review of imaging studies CT of the head is negative for intracranial hemorrhage or mass effect and cervical spine is negative for fracture or subluxation. Patient given Tylenol and discharged back to the facility. Differential Diagnosis Differential Diagnoses: The differential diagnosis associated with the presentation includes Please see the discussion Admission/Observation Consideration of admission/observation: Escalation of care including admission/observation considered Please see the discussion above Radiology Impression Discussion of test interpretation with radiology: I have reviewed the radiologist's reading. Radiologist Impression: Please see the discussion above Discharge Plan Discharge Clinical Impression: Fall, Superficial abrasion Patient Disposition: Xfer Other Instructions: Fall Prevention for Older Adults (ED), Abrasion (ED) Additional Instructions: Follow-up with your primary care provider. Referrals: Corinna Beach MD [Primary Care Provider] -
--- NOTE | 2023-08-06 07:50 | PC.NURSE ---
assumed care of pt at 0700. pt sleeping quietly on stretcher in no apparent distress. rr even/unlabored. 1:1 sitter at bedside for pt safety. awaiting transportation back to [facility]. plan of care ongoing.
[2023-08-06] MEDS: Acetaminophen 325 MG TABLET 975 MG PO (09:22)
--- NOTE | 2023-08-06 09:52 | PC.NURSE ---
called [facility] to give nurse to nurse report. transferred to pt's nurse by hospice patient care secretary. nurse did not cone picker, no voicemail opportunity available.
== END 2023-08-06 09:55 ==
PROVIDERS: Emergency Provider Student in an Organized Health Care Education/Training Program; PCP Internal Medicine
DX: S00.81XA Abrasion of other part of head, initial encounter (principal); F03.911 Unspecified dementia, unspecified severity, with agitation; R51.9 Headache, unspecified; M54.2 Cervicalgia; W01.10XA Fall on same level from slipping, tripping and stumbling with subsequent striking against unspecified object, initial encounter; Y93.9 Activity, unspecified; Y92.9 Unspecified place or not applicable; Y99.9 Unspecified external cause status
CPT/HCPCS: 70450; 72125; 99283; 99284

== ENCOUNTER 2023-08-21 07:14 | Emergency (ER) | payer OTHER, SELFPAY ==
[2023-08-21 07:22] VITALS: BP 130/70; BP 155/130; PULSE 128; PULSE 140; RESP 18; TEMP 36.7; O2SAT 95; O2SAT 99; BMI 23.8
--- NOTE | 2023-08-21 07:38 | PC.NURSE ---
coming from [facility] for ?seizure. was on floor this morning for staff. blood noted to patients mouth however patient will not open mouth for staff. uncooperative and not re-directable with care. attempting to get out of bed, altered at baseline.
--- NOTE | 2023-08-21 08:15 | PC.NURSE ---
provider at bedside, cleaned patient's mouth to best of ability. found small laceration on inside of patient's upper lip. plan for lab work and observation.
--- NOTE | 2023-08-21 08:22 | ED_ITS ---
HPI - General Adult General Chief complaint: Seizure Stated complaint: sz w/fall, from snf per ems Time Seen by Provider: 08/21/23 07:50 History of Present Illness HPI narrative: The patient is a 63-year-old female with a history of severe Alzheimer's disease who lives at a local custodial. She also has a history of a seizure disorder and is on levetiracetam. She was brought to the hospital by ambulance to the found on the floor. Apparently staff heard a ?thump? and found her on the floor. This was an unwitnessed event. It is not clear if this was a fall or a seizure. The patient is severely demented and unable to give any additional history. Related Data Allergies Allergy/AdvReac Type Severity Reaction Status Date / Time No Known Allergies Allergy Verified 10/01/22 08:19 Review of Systems 2 Review of Systems: Yes Unobtainable due to mental status PMFSH Past Medical History Onset Date is defined in the Problem List Problems that require an onset date and time if occurred within 24 hrs of arrival to the ED Aortic Dissection and Rupture; Neurologic impairment; Cardiopulmonary Arrest; Endotracheal Intubation; Insertion or Replacement of Mechanical Circulatory Assist Device Medical History Peptic ulcer, site unspecified, unspecified as acute or chronic, without hemorrhage or perforation Dementia in other diseases classified elsewhere, unspecified severity, without behavioral disturbance, psychotic disturbance, mood disturbance, and anxiety Vitamin D deficiency, unspecified Unspecified dementia, unspecified severity, without behavioral disturbance, psychotic disturbance, mood disturbance, and anxiety Muscle weakness (generalized) Vascular dementia, unspecified severity, without behavioral disturbance, psychotic disturbance, mood disturbance, and anxiety Age-related nuclear cataract, bilateral Unspecified lack of coordination Dementia in other diseases classified elsewhere, unspecified severity, with agitation Essential (primary) hypertension Adjustment disorder, unspecified Other abnormalities of gait and mobility Dysphagia, unspecified Nausea with vomiting, unspecified Gastro-esophageal reflux disease without esophagitis Dysphagia, oropharyngeal phase Alzheimer's disease, unspecified Personal history of peptic ulcer disease Social History Social History Advance Directives: Yes Advance Directives on File: Yes Advance Directives Date on File: 10/01/22 Physical Exam ED Vital Signs: Vital Signs - 24 hr 08/21/23 07:22 08/21/23 10:07 Temperature 98.0 F Pulse Rate 128 H 104 H Respiratory Rate 18 16 Blood Pressure 155/130 H 122/79 Pulse Oximetry 95 97 Oxygen Delivery Method Room Air Room Air BMI result Body Mass Index 23.8 Const Other: The patient is a thin 63-year-old woman who is awake. She is not very communicative. It does not clear if she understands speech. she seems quite demented. HENMT Other: There was some dried blood on the patient's lips. There was no other obvious sign of trauma to the patient's head or face. No scalp hematomas. No facial swelling. No facial bruising. No raccoon eyes. No sameuls sign. The patient was resistant to examination. Ultimately it was apparent that there was a small laceration of the left upper lip. This was a non gaping laceration that seemed to tend to stay closed. There does not seem to be any dental injury. There did not seem to be any mandibular injury. Eyes Other: Pupils are round equal, conjunctivae are clear, extraocular movements were intact. Neck Other: No apparent posterior C-spine tenderness. She was moving her neck easily without apparent discomfort. I think her C-spine is clinically clear. Chest Other: No chest wall tenderness. No crepitus or subcutaneous emphysema. Resp Effort & Inspection: normal respiratory effort Auscultation: clear to auscultation bilaterally Cardio Other: The patient was mildly tachycardic. She had a regular rate and rhythm. No murmur. GI Other: The abdomen was soft and not apparently tender. Skin Other: No signs of skin injury. No bruising. Neuro Other: The patient is awake and seems alert. She seems quite demented and spoke only and was trying to resist examination. She spoke clearly when she spoke but her speech content was poor. Her eye movements are intact. Her face is symmetrical. She is moving her extremities symmetrically. She seems significantly demented but to have a nonfocal exam otherwise. Extrem Other: No signs of trauma to the extremities. Medications Administered Discontinued Medications Generic Name Dose Route Start Last Admin Trade Name Freq PRN Reason Stop Dose Admin Diazepam 5 mg 08/21/23 08:38 08/21/23 08:47 Diazepam 10 Mg/2 Ml Cartridge IVPUSH 08/21/23 08:39 5 mg STAT STA Administration Levetiracetam 500 mg in 100 mls @ 400 mls/hr 08/21/23 08:37 08/21/23 09:53 Keppra IV 08/21/23 08:51 Infused ONCE ONE Infusion Medical Decision Making Medical Decision Making [facility] Narrative: The patient is a 63-year-old woman with advanced dementia who lives at a local nursing facility. She also has a history of a seizure disorder and is on levetiracetam 250 mg b.i.d.. Today she was found on the floor. Whether this was a fall or a seizure is not clear. The only injury I find on exam is a small left upper lip laceration. Given the patient's dementia and inability to cooperate and given her reluctance to even allow me to examine her I think that attempting to place some sutures in this wound would be extremely difficult. Additionally the wound is quite small and I think it will likely do well without sutures. CBC and basic metabolic panel are unremarkable. A levetiracetam level has been sent. The patient was given a dose of levetiracetam as I do not believe she received her morning dose. She was also given a dose of diazepam. I think she may return to her facility. Lab Data 08/21/23 08:35 08/21/23 08:35 Labs: Lab Results 08/21/23 Range/Units 08:35 WBC 9.7 (4.8-10.8) X10*3/uL RBC 4.88 (4.20-5.50) X10*6/uL Hgb 13.3 (12.0-16.0) g/dl Hct 41.2 (37.0-47.0) % MCV 84.4 (80.0-98.0) fL MCH 27.3 (27.0-33.0) pg MCHC 32.3 (31.0-35.0) g/dl RDW 13.2 (11.0-16.0) % Plt Count 245 D (160-400) X10*3/uL MPV 9.6 (9.4-12.3) fL Immature Gran % (Auto) 0.4 (0.0-0.4) % Neut % (Auto) 82.9 H (45-73) % Lymph % (Auto) 11.1 L (20-40) % [place] % (Auto) 4.8 (2-11) % Eos % (Auto) 0.4 (0-4) % Baso % (Auto) 0.4 (0-2) % Lymph # (Auto) 1.1 L (1.2-4.9) X10*3/uL [place] # (Auto) 0.5 (0.1-1.2) X10*3/uL Eos # (Auto) 0.0 (0.0-0.4) X10*3/uL Baso # (Auto) 0.0 (0.0-0.2) X10*3/uL Abs Immat Gran (auto) 0.04 H (0.00-0.03) X10*3/uL Absolute Neuts (auto) 8.1 (2.0-8.3) x10*3/uL Absolute Nucleated RBC 0.000 (0.0-0.012) X10*3/uL Nucleated RBC % (auto) 0.0 (0.0-0.2) /100WBC Sodium 144 (135-145) mmol/L Potassium 3.8 (3.3-5.1) mmol/L Chloride 110 H (96-108) mmol/L Carbon Dioxide 25 (22-29) mmol/L Anion Gap 13 (12-20) BUN 20 H (9-16) mg/dL Creatinine 0.70 (0.5-1.4) mg/dL Estim Creat Clear Calc 66.2 Estimated GFR > 60 Random Glucose 120 H (60-115) mg/dL Calcium 9.5 (8.4-10.2) mg/dL Total Bilirubin 0.5 (0.0-1.0) mg/dL Direct Bilirubin 0.2 (0.0-0.5) mg/dL AST 20 (5-31) U/L ALT 15 (0-31) U/L Alkaline Phosphatase 107 (39-117) U/L Total Protein 7.7 (6.5-8.0) g/dL Albumin 4.4 (3.5-5.0) g/dL Discharge Plan Discharge Clinical Impression: Fall, Laceration of lip Patient Disposition: [facility] Additional Instructions: There is a small laceration to her left upper lip which is not amenable to suturing. I think this should do well on its own although there may be some occasional oozing of blood. She received a morning dose of levetiracetam here in the emergency room. She also received a dose of diazepam A levetiracetam blood level is pending. CBC and metabolic panel are unremarkable. Please resume normal care. Return to the emergency room if worse. Referrals: [facility] [Outside] Corinna Beach MD [Primary Care Provider] -
[2023-08-21 08:40] LABS: MANUAL DIFF FLAG NO
[2023-08-21 08:43] LABS: Basophils Percent Auto 0.4 % (0-2); Eosinophils Percent Auto 0.4 % (0-4); Hematocrit 41.2 % (37.0-47.0); Hemoglobin 13.3 g/dl (12.0-16.0); Imm Gran Abs Auto 0.04 X10*3/uL (0.00-0.03); Imm Gran Pct Auto 0.4 % (0.0-0.4); Lymphocytes Absolute Auto 1.1 X10*3/uL (1.2-4.9); Lymphocytes Percent Auto 11.1 % (20-40); Mean Corpuscular HGB Conc 32.3 g/dl (31.0-35.0); Mean Corpuscular Hemoglobin 27.3 pg (27.0-33.0); Mean Corpuscular Volume 84.4 fL (80.0-98.0); Mean Platelet Volume 9.6 fL (9.4-12.3); Monocytes Absolute Auto 0.5 X10*3/uL (0.1-1.2); Monocytes Percent Auto 4.8 % (2-11); Neutrophils Absolute Auto 8.1 x10*3/uL (2.0-8.3); Neutrophils Percent Auto 82.9 % (45-73); Platelet Count 245 X10*3/uL (160-400); Red Blood Count 4.88 X10*6/uL (4.20-5.50); Red Cell Distribution Width 13.2 % (11.0-16.0); White Blood Count 9.7 X10*3/uL (4.8-10.8)
--- NOTE | 2023-08-21 08:45 | PC.NURSE ---
unable to medicate patient with PO medications after multiple attempts. IV established, labs drawn and sent. medicated per the OCT.
[2023-08-21] MEDS: diazePAM 10 MG/2 ML CARTRIDGE 5 MG IVPUSH (08:47)
[2023-08-21] MEDS: levETIRAcetam in NaCl (iso-os) 500 MG/100 ML PIGGYBACK 400 MG IV (08:47)
[2023-08-21 09:06] LABS: Alanine Aminotransferase 15 U/L (0-31); Albumin Level 4.4 g/dL (3.5-5.0); Alkaline Phosphatase 107 U/L (39-117); Anion Gap 13 (12-20); Aspartate Amino Transferase 20 U/L (5-31); Bilirubin Direct 0.2 mg/dL (0.0-0.5); Bilirubin Total 0.5 mg/dL (0.0-1.0); Blood Urea Nitrogen 20 mg/dL (9-16); Calcium 9.5 mg/dL (8.4-10.2); Carbon Dioxide 25 mmol/L (22-29); Chloride 110 mmol/L (96-108); Creatinine Clr Calc Pharmacy 66.2; Estimated Glomerular Filt Rate > 60; Glucose Random 120 mg/dL (60-115); Potassium 3.8 mmol/L (3.3-5.1); Sodium 144 mmol/L (135-145); Total Protein 7.7 g/dL (6.5-8.0)
[2023-08-21 10:07] VITALS: BP 122/79; PULSE 104; RESP 16; O2SAT 97
[2023-08-24 19:49] LABS: Levetiracetam Keppra <2.0 mcg/mL (6.0-46.0)
== END 2023-08-21 13:04 ==
PROVIDERS: Emergency Provider Emergency Medicine; PCP Internal Medicine
DX: S01.511A Laceration without foreign body of lip, initial encounter (principal); R56.9 Unspecified convulsions; R00.0 Tachycardia, unspecified; W01.0XXA Fall on same level from slipping, tripping and stumbling without subsequent striking against object, initial encounter; Y93.9 Activity, unspecified; Y92.9 Unspecified place or not applicable; Y99.9 Unspecified external cause status; Z79.899 Other long term (current) drug therapy
CPT/HCPCS: 36415; 80048; 80076; 80177; 85025; 96365; 96375; 99284; J1953; J3360